=== PATIENT | female | born 1960 | race Caucasian/White ===

== ENCOUNTER 2017-03-23 07:35 | Outpatient (CLI) | payer BC, OTHER ==
[~2017-03-23 07:35] MED LIST: ATENOLOL; METFORMIN; SIMVASTATIN
== END 2017-03-23 23:59 | disposition home or self-care (01) ==
LOC: LAB 07:35
PROVIDERS: ATTEND Family Medicine
DX: E13.9 Other specified diabetes mellitus without complications (principal); N39.0 Urinary tract infection, site not specified
CPT/HCPCS: 36415; 87086

== ENCOUNTER 2017-04-07 07:59 | Outpatient (CLI) | payer BC, OTHER | END 2017-04-07 23:59 | disposition home or self-care (01) | LOC: LAB 07:59 | PROVIDERS: ATTEND Family Medicine | DX: E13.9 Other specified diabetes mellitus without complications (principal) ==

== ENCOUNTER → 2017-05-31 | Outpatient (CLI) | payer BC, OTHER ==
[2017-05-31 08:40] LABS: BILIRUBIN,DIRECT 0.1 mg/dL (0.0-0.2); BILIRUBIN,TOTAL 0.3 mg/dL (0.2-1.0); TOTAL PROTEIN, SERUM 7.6 g/dL (6.4-8.2)
[2017-06-01 11:10] LABS: HEPATITIS A AB, TOTAL Positive (Negative)
== END | disposition home or self-care (01) ==
LOC: LAB 07:24
PROVIDERS: ATTEND Family Medicine
DX: R94.5 Abnormal results of liver function studies (principal)
CPT/HCPCS: 36415; 86708; 86803